=== PATIENT | female | born 2000 | race Caucasian/White ===

== ENCOUNTER 2022-05-17 12:28 | Emergency (ER) | payer MEDICAID, SELFPAY ==
[2022-05-17 13:21] VITALS: BP 132/85; PULSE 69; RESP 13; TEMP 37; O2SAT 99; BMI 30.9
--- NOTE | 2022-05-17 13:27 | ED_ITS ---
HPI - Female Genitourinary General: Chief complaint: Urogenital-Female Stated complaint: Wants a STD test Time Seen by Provider: 05/17/22 13:27 Source: patient Mode of arrival: ambulatory Limitations: no limitations History of Present Illness: Patient is a 22-year-old female who presents to ED today with a concern for a possible STD. Patient states over the past 2 weeks she has been having green vaginal discharge and vaginal itching. She states she was sexually active with a male individual that she feels like was also messing around with a hoe . Patient states she took OTC medication for a yeast infection but this did not help symptoms. Is not having any pelvic pain. No fevers. MD elicited complaint: vaginal discharge and genital itching Onset (ago): week(s) Vaginal discharge: other (green) Vaginal bleeding: none Associated symptoms: Reports vaginal discharge; Deny abdominal pain, headache(s) or nausea Sexual activity: Yes Patient : No Review of Systems Const: Denies: fever(s), chills, body aches, fatigue or malaise Card: Denies: chest pain Resp: Denies: dyspnea GI: Denies: abdominal pain, nausea, vomiting or diarrhea : Reports: genital pruritis and vaginal discharge; Denies: flank pain, difficulty voiding, dysuria, urinary frequency, urinary urgency, urinary hesitancy, hematuria, genital lesions, vaginal bleeding or pelvic pain Musc: Denies: back pain Skin/Breast: Denies: rash Neuro: Denies: headache(s) Physical Exam Const: COMMON NORMALS: no acute distress, average body habitus, patient oriented x3, no limitations, alert and well nourished Resp: COMMON NORMALS: normal respiratory effort Cardio: COMMON NORMALS: regular rate and regular rhythm RATE: regular rate RHYTHM: regular rhythm GI: COMMON NORMALS: Normal to inspection, nondistended, normoactive bowel sounds present, Soft to palpation, non-tender, No hepatosplenomegaly present and no masses PALPATION: Yes Soft to palpation and Yes No hepatosplenomegaly present : COMMON NORMALS: Yes no CVA tenderness, Yes normal external appearance, Yes normal bimanual exam, Yes No adnexal tenderness and Yes no masses BLADDER/KIDNEY EXAM: Yes no CVA tenderness EXTERNAL FEMALE EXAM: Yes normal appearance of the urethra SPECULUM EXAM - VAGINA: Yes Vaginal discharge present Vaginal discharge present: white SPECULUM EXAM - CERVIX: Yes Other cervical findings present (erythematous friable appearing cervix ) BIMANUAL EXAM - VAGINA & UTERUS: Yes normal bimanual exam BIMANUAL EXAM - ADNEXA, OTHER: Yes normal adnexae Back/Pelvis: COMMON NORMALS: no CVA tenderness Extremity: COMMON NORMALS: normal to inspection GENERAL: Yes normal exam except as noted Neuro: JYOTSNA COMA SCALE: document GCS findings [place] coma scale eye opening: Spontaneous Jyotsna coma scale verbal response: Orientated [place] coma scale motor response: Obey commands [place] coma scale total score: 15 COMMON NORMALS: patient oriented x3, moves all extremities, no focal motor deficits and no sensory deficits noted SENSORIUM/ORIENTATION: Yes alert Skin: COMMON NORMALS: no rashes or lesions noted GENERAL SKIN EXAM: no rashes or lesions noted Course Vital Signs: Vital signs: Vital Signs Temperature 98.6 F 05/17/22 13:21 Pulse Rate 69 05/17/22 13:21 Respiratory Rate 13 05/17/22 13:21 Blood Pressure 132/85 05/17/22 13:21 Pulse Oximetry 99 05/17/22 13:21 Oxygen Delivery Me thod 05/17/22 13:21 MDM - Female Medical Decision Making Patient does have cervicitis on her exam. I have no concern for PID. Patient's wet prep positive for trichomonas and BV. She will be provided a prescription for flagyl. Based on symptoms and possible exposure we will go ahead and cover for gonorrhea/chlamydia. She was given 500 mg IM rocephin and will be sent home with a prescription for doxycycline. Return to ED precautions given. Discussed getting partners tested/treated. Lab Data Laboratory Results Urine Color Yellow (Yellow) 05/17/22 14:03 Urine Appearance Clear (CLEAR) 05/17/22 14:03 Urine pH 5 (5-7) 05/17/22 14:03 Ur Specific [place] 1.025 (1.005-1.030) 05/17/22 14:03 Urine Protein Neg (Negative) 05/17/22 14:03 Urine Glucose (UA) Norm (Normal) 05/17/22 14:03 Urine Ketones Negative (Negative) 05/17/22 14:03 Urine Blood 2+ (Negative) H 05/17/22 14:03 Urine Nitrate Negative (Negative) 05/17/22 14:03 Urine Bilirubin Neg (Negative) 05/17/22 14:03 Urine Urobilinogen Norm mg/dL (Negative) 05/17/22 14:03 Ur Leukocyte Esterase Negative (Negative) 05/17/22 14:03 Amorphous Sediment Not Reportable 05/17/22 14:03 Urine HCG, Qual Negative (Negative) 05/17/22 13:53 Discharge Plan Discharge Patient Disposition: Home Clinical Impression: Trichomonas vaginitis Condition: Stable Prescriptions: New doxycycline monohydrate 100 mg capsule 100 mg PO Q12H 7 Days Qty: 14 0RF metronidazole 500 mg tablet 500 mg PO BID 7 Days Qty: 14 0RF Discharge Orders: Discharge ED (Routine); Ordered 05/17/22 Ordered By: Kait Flannery Patient Instructions: Trichomoniasis (ED) Activity Restrictions/Additional Instructions: You need to abstain from all sexual activity until completing all of your antibiotics. I would recommend getting a test of cure performed at the health department. Should be contacted on your gonorrhea/chlamydia swabs if anything comes back positive. I have placed you on antibiotics both here and a prescription to cover for these. You need to wash and disinfect all or any sexual toys to avoid reinfection. Any sexual partners need to be tested and treated. Coding Level of Care Code ED Mold Tooling Technician for Regan Fwd Exam Comprehensive
[2022-05-17] MEDS: cefTRIAXone 1,000 mg SDV 1000 MG IM (14:44)
[2022-05-17 14:54] LABS: Specific Gravity, Urine 1.025 (1.005-1.030); Urine Appearance Clear (CLEAR); Urine Color Yellow (Yellow); pH Urine 5 (5-7)
[2022-05-17 14:55] LABS: Add Urine Microscopic? YES; Bilirubin Urine Neg (Negative); Blood Urine 2+ (Negative); Glucose Urine UA Norm (Normal); Ketones Urine Negative (Negative); Leukocyte Esterase Urine Negative (Negative); Nitrate Urine Negative (Negative); Protein Urine Neg (Negative); Urobilinogen Urine Norm (Negative)
[2022-05-17 15:09] LABS: Add Urine Culture? No; RBC Urine 0-4 /hpf (0-2); WBC Urine 0-4 /hpf (0-5)
== END 2022-05-17 15:21 | disposition home or self-care (01) ==
PROVIDERS: Emergency Provider Physician Assistant
DX: A59.01 Trichomonal vulvovaginitis (principal)
CPT/HCPCS: 81001; 81025; 87210; 87491; 87591; 96372; 99284; E0352; J0696

== ENCOUNTER 2022-06-27 21:26 | Emergency (ER) | payer MEDICAID, SELFPAY ==
[2022-06-27 21:52] VITALS: BP 139/87; PULSE 101; RESP 17; TEMP 36.7; O2SAT 96
[2022-06-28] VITALS: BMI 27.4
--- NOTE | 2022-06-28 00:43 | ED_ITS ---
HPI - Dental/Oral General: Chief complaint: Dental/Oral Stated complaint: mouth pain Time Seen by Provider: 06/28/22 00:10 Source: patient Mode of arrival: ambulatory Limitations: no limitations History of Present Illness: 21-year-old female states she been having some upper right dental pain for the last 2 days she states that the pain has been sharp in nature she was unable to sleep tonight due to rated a 7 out of 10 she had no trismus no trouble swallowing no fevers. She denies any worsening improving factors. Physical Exam Const: COMMON NORMALS: no acute distress, patient oriented x3 and healthy appearing HENMT: COMMON NORMALS: normocephalic and atraumatic HEAD & SCALP: normocephalic and atraumatic OTHER: Tenderness along with inflammation of the gumline to right upper molar no abscess no trismus Eye: COMMON NORMALS: conjunctivae normal CONJUNCTIVA: Yes conjunctivae normal Neck/C-Spine: COMMON NORMALS: full ROM and supple Chest: COMMONS NORMALS: normal inspection of the chest Resp: COMMON NORMALS: normal respiratory effort Cardio: COMMON NORMALS: regular rate RATE: regular rate GI: INSPECTION: Yes normal to inspection Extremity: COMMON NORMALS: normal to inspection and full ROM Neuro: COMMON NORMALS: patient oriented x3, moves all extremities and no focal motor deficits Psych: COMMON NORMALS: mental status grossly normal Skin: COMMON NORMALS: no rashes or lesions noted and no wounds GENERAL SKIN EXAM: no rashes or lesions noted Course Vital Signs: Vital signs: Vital Signs Temperature 98.1 F 06/27/22 21:52 Pulse Rate 101 H 06/27/22 21:52 Respiratory Rate 17 06/27/22 21:52 Blood Pressure 139/87 06/27/22 21:52 Pulse Oximetry 96 06/27/22 21:52 Oxygen Delivery Me thod 06/27/22 21:52 MDM - Dental/Oral Medical Decision Making Patient presents here with dental pain she has no abscess or trismus does have some inflammation along her gumline of upper right molar we will prescribe her antibiotic she is to follow-up with dentist she is return for worsening Discharge Plan Discharge Patient Disposition: Home Clinical Impression: Toothache Condition: Stable Prescriptions: New cephalexin 500 mg capsule 500 mg PO TID 7 Days Qty: 21 0RF Naprosyn 500 mg tablet 500 mg PO BID PRN (Reason: pain) Qty: 20 0RF Discharge Orders: Discharge ED (Routine); Ordered 06/28/22 Ordered By: Yann Naidu Discharge Diet: Advance as tolerated Discharge Activity: Resume usual activity Patient Instructions: Toothache (ED) Coding Level of Care Code ED Unhairing Machine Operator for Regan Wong
[2022-06-28] MEDS: HYDROcodone-acetaminophen 5-325 mg Tablet 1 TAB PO (00:55)
[2022-06-28] MEDS: cephALEXin 500 mg Capsule PO (00:55)
== END 2022-06-28 01:10 | disposition home or self-care (01) ==
PROVIDERS: Emergency Provider Emergency Medicine
DX: K08.89 Other specified disorders of teeth and supporting structures (principal)
CPT/HCPCS: 99283